=== PATIENT | female | born 1960 | race Caucasian/White ===

== ENCOUNTER 2023-03-26 08:58 | Emergency (ER) | payer BC, SELFPAY ==
[2023-03-26 09:09] VITALS: BP 140/84; PULSE 85; RESP 18; TEMP 36.4; O2SAT 93; BMI 19.5
--- NOTE | 2023-03-26 09:24 | ED_ITS ---
HPI - General Adult General Time Seen by Provider: 09:24 Date Seen: 03/26/23 Chief complaint: Shoulder Injury/Pain Stated complaint: R shoulder pain Time Seen by Provider: 03/26/23 09:12 Source: patient Mode of arrival: ambulatory Limitations: no limitations History of Present Illness HPI narrative: [age] year white female who is has no significant medical history, presents with lifting a small dog the last couple of days and having some right periscapular pain. She has had this discomfort in that area before but typically goes away she has had this about 3 or 4 days. It is worse with a deep breath worse with raising her arm. She can palpate the area in her back area that does cause discomfort it is right around her shoulder blade. She has had no trauma or injury. She does work very long hours in [employer] and has had a lot of stress with that position as well. She tried some muscle relaxant that she had from a back injury and chronic back pain and did not seem to make it much better and she is care needs to be awake and alert and unable to be sedated during the day. Due to her job. Patient denies anterior chest pain, nausea, vomiting, diaphoresis, history of cardiac issues, history of hypertension or diabetes. She did call the clinic today and they told her to come here to the [facility] [place] Related Data Home Medications Medication Instructions Recorded Confirmed escitalopram oxalate 10 mg tablet 10 mg PO DAILY 03/26/23 03/26/23 Previous Rx's Medication Instructions Recorded celecoxib 200 mg capsule (Celebrex) 200 mg PO DAILY #14 caps 03/26/23 methylprednisolone 4 mg tablets in See Rx Instructions PO .COMPLEX 03/26/23 a dose pack (Medrol (Jc)) #21 ea Allergies Allergy/AdvReac Type Severity Reaction Status Date / Time tetracycline Allergy Verified 03/26/23 09:11 Review of Systems Status of ROS: Reports: 6 or more systems reviewed and unremarkable except as noted in History and below PFSH PFS Social History Smoking Status: Smoker, status unknown Do you use any of these nicotine containing products: None How often do you have a drink containing alcohol: never How often do you have six or more drinks on one occasion: Never AUDIT-C Alcohol total score: 0 Non-prescribed substance use: denies use Exam Narrative: Exam Narrative: Objective: Patient's vital signs look unremarkable and within normal limits She is alert orient x3 very pleasant HEENT is unremarkable neck is supple Chest is clear no rales or wheezing Heart rhythm regular heart murmur The patient has palpable rhomboid muscle pain along the right parascapular border medially. This exactly recreates the pain she has had. With elevation of her arm in internal external rotation of her shoulder she does have discomfort in that area as well. She has no neck pain. Neurologic is nonfocal good peripheral perfusion noted Const: Vital Signs, click to edit/add: Vital Signs - 24 hr 03/26/23 09:09 Temperature 97.6 F Pulse Rate [Right Pulse Oximeter] 85 Respiratory Rate 18 Blood Pressure [Ri ght Upper Arm] 140/84 H Pulse Oximetry 93 Oxygen Delivery Me thod Room Air Course Vital Signs Vital signs: Initial Vital Signs Temperature 97.6 F 03/26/23 09:09 Temperature Source Temporal Artery Scan 03/26/23 09:09 Pulse Rate 85 03/26/23 09:09 Respiratory Rate 18 03/26/23 09:09 Blood Pressure 140/84 H 03/26/23 09:09 Blood Pressure Mean 102 03/26/23 09:09 Blood Pressure Position Sitting 03/26/23 09:09 Pulse Oximetry 93 03/26/23 09:09 Oxygen Delivery Method Room Air 03/26/23 09:09 Vital Signs Temperature 97.6 F 03/26/23 09:09 Pulse Rate 85 03/26/23 09:09 Respiratory Rate 18 03/26/23 09:09 Blood Pressure 140/84 H 03/26/23 09:09 Pulse Oximetry 93 03/26/23 09:09 Oxygen Delivery Method Room Air 03/26/23 09:09 Temperature 97.6 F 03/26/23 09:09 Pulse Rate 85 03/26/23 09:09 Respiratory Rate 18 03/26/23 09:09 Blood Pressure 140/84 H 03/26/23 09:09 Pulse Oximetry 93 03/26/23 09:09 Oxygen Delivery Method Room Air 03/26/23 09:09 Medications Administered Medications: Discontinued Medications Generic Name Dose Route Start Last Admin Trade Name Freq PRN Reason Stop Dose Admin Ketorolac Tromethamine 60 mg 03/26/23 09:20 03/26/23 09:45 Ketorolac 30 Mg/Ml Inj IM 03/26/23 09:21 60 mg ONCE ONE Administration Medical Decision Making [facility] Narrative Medical decision making narrative: [age] year white female with palpable periscapular pain in the rhomboid muscle area, likely rhomboid muscle spasm or strain. She did report this from starting from lifting a dog. Certainly could be from her long hours at work as well. At this time would recommend we give her some medication for anti-inflammatory effect, will give her Toradol 60 mg IM. 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 I do not have suspicion for cardiac issues, however given the patient's presentation I think it be reasonable to get an EKG and a point of care troponin. If these are negative given her duration of symptoms I think we can lower go home with a muscle spasm treatment. Would give her Medrol Dosepak as well as Celebrex. Would have her follow up with regular doctor next 2-3 days for consideration of physical therapy and ongoing care. Return to ED sooner problems or concerns. addendum 10:19 a.m. the patient's troponin point of care 0, EKG shows normal sinus rhythm normal EKG by my read no acute ischemic changes. Patient get an injection of pain medication will give her Celebrex and Medrol for home. Recheck with regular doctor in the next several days. Lab Data Labs: Lab Results 03/26/23 Range/Units 09:20 POC Troponin I 0.00 L (0.01-0.04) ng/ml Discharge Plan Discharge Clinical Impression: Back pain, thoracic Patient Disposition: Home w/ Parent or Adult Condition: Stable Additional Instructions: steroid and Celebrex as prescribed, recommend light activity, ice the area couple times a day if he can. Recommend recheck with regular doctor in the next 2-3 days to talk about ongoing care such as physical therapy. Return to ED if problems or concerns. Activity Level: Light activity Discharge Diet: Regular Prescriptions: New celecoxib [Celebrex] 200 mg capsule 200 mg PO DAILY Qty: 14 2RF methylprednisolone [Medrol (Jc)] 4 mg tablets,dose pack See Rx Instructions .ROUTE .COMPLEX Qty: 21 0RF Rx Instructions: orally per package directions No Action escitalopram oxalate 10 mg tablet 10 mg PO DAILY Stand Alone Forms: [employer] Info Instructions
[2023-03-26] MEDS: KETOROLAC 30 MG/ML inj 60 MG IM (09:45)
== END 2023-03-26 10:30 | disposition home or self-care (01) ==
LOC: ED 09:32
PROVIDERS: Emergency Provider Family Medicine
DX: M54.6 Pain in thoracic spine (principal); X50.1XXA Overexertion from prolonged static or awkward postures, initial encounter
CPT/HCPCS: 84484; 93005; 95992; 96372; 99283; 99284; J1885